=== PATIENT | male | born 1970 | race Caucasian/White ===

== ENCOUNTER 2017-02-22 17:25 | Emergency (ER) | payer OTHER ==
--- NOTE | 2017-02-22 18:19 | EDM.PDOC ---
ED HPI GENERAL MEDICAL PROBLEM - General Chief Complaint: Gastrointestinal Problem Stated Complaint: BLOOD IN STOOL Time Seen by Provider: 02/22/17 17:43 Source of Information: Reports: Patient, RN Notes Reviewed - History of Present Illness INITIAL COMMENTS - FREE TEXT/NARRATIVE: 47-year-old male comes in with concern about some rectal bleeding earlier today. Her this past morning quite a few hours ago. He states that he did have a somewhat loose stool, much looser than usual but there also was some blood associated with that. Right blood, seem to be a fair amount, perhaps in the 1/2 cup range. He then did have a bowel movement this afternoon that was normal, no blood present at that time. States he is felt just a little bit off yesterday and today, slightly less energy than normal but otherwise not feeling sick. No abdominal pain nausea or vomiting. Eating and drinking normally. No fever or chills. His never had anything of that nature before. It appears that a great concern to him is strong family history for colon cancer. He eats that his mother in her late her 50s of what sounds like colon cancer type problem. He has some brothers and sisters none of which are known to have any of colon Or other cancer. - Related Data Allergies Allergy/AdvReac Type Severity Reaction Status Date / Time No Known Allergies Allergy Verified 02/22/17 17:30 Home Meds: Home Meds Ascorbic Acid [Vitamin C] 1,000 mg PO DAILY 02/22/17 [History] [place]-3/DHA/Epa/Fish Oil [Fish Oil 1,000 mg Softgel] 1,000 mg PO DAILY 02/22/17 [History] Past Medical History Cardiovascular History: Reports: [place] Gastrointestinal History: Reports: Hemorrhoids, Other (See Below) Other Gastrointestinal History: previous rectal bleeding, not formally Dx'd. Musculoskeletal History: Reports: Fracture - Infectious Disease History Infectious Disease History: Reports: Chicken Pox - Past Surgical History Cardiovascular Surgical History: Reports: Other (See Below) Other Cardiovascular Surgeries/Procedures: angiogram. Social & Family History - Tobacco Use Smoking Status *Q: Never Smoker Second Hand Smoke Exposure: No - Caffeine Use Caffeine Use: Reports: Coffee, Tea - Alcohol Use Days Per Week of Alcohol Use: 2 Number of Drinks Per Day: 3 Total Drinks Per Week: 6 - Recreational Drug Use Recreational Drug Use: No ED ROS GENERAL - Review of Systems Review Of Systems: See Below Constitutional: Denies: Fever, Chills, Diaphoresis HEENT: Reports: No Symptoms Respiratory: Denies: Shortness of Breath, Pleuritic Chest Pain Cardiovascular: Denies: Chest Pain GI/Abdominal: Reports: Diarrhea (Mild 1 earlier today), Hematochezia. Denies: Abdominal Pain, Black Stool, Nausea, Vomiting Musculoskeletal: Reports: No Symptoms Skin: Reports: No Symptoms Neurological: Reports: No Symptoms ED EXAM, GI/ABD - Physical Exam Exam: See Below General Appearance: Alert, No Apparent Distress Throat/Mouth: Normal Inspection, Normal Oropharynx Head: No: Facial Swelling Neck: Supple, Full Range of Motion Respiratory/Chest: No Respiratory Distress, Lungs Clear, Normal Breath Sounds Cardiovascular: Regular Rate, Rhythm GI/Abdominal Exam: Soft, Non-Tender. No: Guarding Rectal (Males) Exam: Normal Exam, Heme - Stool. No: Hemorrhoids, Rectal Fissure , Tenderness Extremities: Normal Inspection Neurological: Alert, Oriented, No Motor/Sensory Deficits Skin Exam: Warm, Dry, Normal Color, No Rash Course - Vital Signs Last Recorded V/S: Last Vital Signs Temp 98.2 F 02/22/17 17:25 Pulse 87 02/22/17 17:25 Resp 16 02/22/17 17:25 BP 137/87 02/22/17 17:25 Pulse Ox 97 02/22/17 17:25 Orthostatic Blood Pressure [ 124/89 Standing] Orthostatic Blood Pressure [ 133/83 Sitting] Orthostatic Blood Pressure [ 121/75 Supine] - Orders/Labs/Meds Labs: Laboratory Tests 02/22/17 Range/Units 18:10 WBC 9.85 H (4.23-9.07) K/mm3 RBC 5.06 (4.63-6.08) M/mm3 Hgb 15.0 (13.7-17.5) gm/L Hct 43.1 (40.1-51.0) % MCV 85.2 (79.0-92.2) fl MCH 29.6 (25.7-32.2) pg MCHC 34.8 (32.2-35.5) g/dl RDW Std Deviation 39.9 (35.1-43.9) fL Plt Count 269 (163-337) K/mm3 MPV 10.9 (9.4-12.3) fl Neut % (Auto) 77.1 H (34.0-67.9) % Lymph % (Auto) 16.6 L (21.8-53.1) % [place] % (Auto) 6.0 (5.3-12.2) % Eos % (Auto) 0 L (0.8-7.0) Baso % (Auto) 0.1 (0.1-1.2) % Neut # (Auto) 7.59 H (1.78-5.38) K/mm3 Lymph # (Auto) 1.64 (1.32-3.57) K/mm3 [place] # (Auto) 0.59 (0.30-0.82) K/mm3 Eos # (Auto) 0.00 L (0.04-0.54) K/mm3 Baso # (Auto) 0.01 (0.01-0.08) K/mm3 Departure - Departure Time of Disposition: 18:23 Disposition: Home, Self-Care 01 Condition: Fair Clinical Impression: Rectal hemorrhage - Discharge Information Referrals: PCP,None [Primary Care Provider] - Forms: ED Department Discharge Additional Instructions: Clear liquids and very bland diet this evening and tomorrow morning, then advance diet carefully as tolerated, if you do have further diarrhea then start probiotic which is available OTC and take that twice daily for the next 5 days. I do recommend you follow-up with Dr. Brewer, one of our General surgeons early next week for follow-up evaluation and strong consideration for colonoscopy. Call [phone] for appointment. Return to ED as needed if symptoms worsening in any way.
== END 2017-02-22 18:35 | disposition home or self-care (01) ==
LOC: JD.ED 17:25
DX: K62.5 Hemorrhage of anus and rectum (principal)
CPT/HCPCS: 36415; 82270; 85025; 99282; 99283-25